=== PATIENT | male | born 1995 | race Caucasian/White ===

== ENCOUNTER 2020-07-26 07:46 | Inpatient (IN) ==
[2020-07-26] MEDS ORDERED: 0.9 % Sodium Chloride 1,000 ML IVC ONE (08:15)
[2020-07-26 09:06] LABS: Hematocrit 32.6 % (37.5-50.1); Mean Corpuscular HGB Conc 33.1 g/dL (31.6-35.5); Mean Corpuscular Hemoglobin 29.2 pg (28.0-33.3); Mean Corpuscular Volume 88.1 fL (83.0-100.0); Platelet Count 236 K/mcL (140-400); Red Cell Distribution Width 12.7 % (11.5-14.5); White Blood Count 8.4 K/mcL (4.3-11.1)
[2020-07-26 09:07] LABS: Hemoglobin 10.8 g/dL (12.9-16.9)
[2020-07-26 09:25] LABS: BUN/Creatinine Ratio 20 (6-26); Blood Urea Nitrogen 17 mg/dL (6-20); Calcium 8.2 mg/dL (8.6-10.3); Carbon Dioxide 24 mEq/L (23-29); Chloride 108 mEq/L (98-107); Glucose 144 mg/dL (70-105); Osmolality,Calculated 292 (280-300); Potassium 3.5 mEq/L (3.5-5.1); Sodium 139 mEq/L (136-145); eGFR For African Americans > 60 (> 60); eGFR For Non-African Americans > 60 (> 60)
[2020-07-26] MEDS ORDERED: Acetaminophen 325 MG TABLET PO PRN (09:37)
[2020-07-26] MEDS ORDERED: Ondansetron 4 MG/2 ML VIAL IVP PRN (09:37)
[2020-07-26 10:02] LABS: Alanine Aminotransferase 25 Units/L (7-52); Albumin 3.7 g/dL (3.5-5.7); Albumin/Globulin Ratio 2.1 (1.1-2.2); Alkaline Phosphatase 48 Units/L (34-104); Aspartate Amino Transferase 18 Units/L (13-39); Bilirubin,Direct 0.1 mg/dL (0.0-0.2); Bilirubin,Indirect 0.3 mg/dL (0.0-1.0); Bilirubin,Total 0.4 mg/dL (0.3-1.0); C-Reactive Protein < 5 mg/L (Less than 10); Globulin 1.8 g/dL (2.4-3.5); Total Protein 5.5 g/dL (6.4-8.9)
[2020-07-26] MEDS: 0.9 % Sodium Chloride 1,000 ML IVC SCH ×2 (12:19→16:59)
[2020-07-26 15:55] LABS: Hematocrit 26.8 % (37.5-50.1); Mean Corpuscular Hemoglobin 30.4 pg (28.0-33.3); Mean Corpuscular Volume 89.6 fL (83.0-100.0); Mean Platelet Volume 10.2 fL (9.4-12.4); Platelet Count 199 K/mcL (140-400); Red Blood Count 2.99 M/mcL (4.19-5.50); Red Cell Distribution Width 12.7 % (11.5-14.5); White Blood Count 9.7 K/mcL (4.3-11.1)
[2020-07-26 16:01] LABS: Hemoglobin 9.1 g/dL (12.9-16.9)
[2020-07-26] MEDS ORDERED: SODIUM CHLORIDE/NAHCO3/KCL/PEG 4,000 ML SOLN.RECON PO ONE (17:00)
[2020-07-27 04:04] LABS: Hematocrit 22.1 % (37.5-50.1); Mean Corpuscular HGB Conc 33.5 g/dL (31.6-35.5); Mean Corpuscular Hemoglobin 30.1 pg (28.0-33.3); Mean Corpuscular Volume 89.8 fL (83.0-100.0); Mean Platelet Volume 9.8 fL (9.4-12.4); Platelet Count 172 K/mcL (140-400); Red Blood Count 2.46 M/mcL (4.19-5.50); Red Cell Distribution Width 12.6 % (11.5-14.5); White Blood Count 7.8 K/mcL (4.3-11.1)
[2020-07-27 04:05] LABS: Hemoglobin 7.4 g/dL (12.9-16.9)
[2020-07-27] MEDS ORDERED: 0.9 % Sodium Chloride 1,000 ML IVC SCH (08:15)
[2020-07-27] MEDS ORDERED: 0.9 % Sodium Chloride 250 ML ONE (08:25)
[2020-07-27] MEDS ORDERED: 0.9 % Sodium Chloride 500 ML IVC PRN (12:39)
[2020-07-27 16:31] LABS: Hematocrit 28.3 % (37.5-50.1); Hemoglobin 9.7 g/dL (12.9-16.9)
[2020-07-27 21:55] LABS: Hematocrit 26.3 % (37.5-50.1); Hemoglobin 9.1 g/dL (12.9-16.9)
[2020-07-28 06:42] VITALS: BP 112/69
[2020-07-28 06:59] LABS: Basophils % 0.4 %; Eosinophils # 0.3 K/mcL (0.0-0.6); Eosinophils % 4.4 %; Hematocrit 25.4 % (37.5-50.1); Hemoglobin 8.6 g/dL (12.9-16.9); Immature Granulocytes % 0.6 % (0-4); Lymphocytes # 2.6 K/mcL (0.6-4.6); Lymphocytes % 36.8 %; Mean Corpuscular HGB Conc 33.9 g/dL (31.6-35.5); Mean Corpuscular Volume 88.5 fL (83.0-100.0); Mean Platelet Volume 9.7 fL (9.4-12.4); Monocytes # 0.5 K/mcL (0.0-1.3); Monocytes % 7.2 %; Neutrophils # 3.6 K/mcL (1.6-8.9); Platelet Count 205 K/mcL (140-400); Red Blood Count 2.87 M/mcL (4.19-5.50); Red Cell Distribution Width 12.7 % (11.5-14.5); Segmented Neutrophils % 50.6 %; White Blood Count 7.1 K/mcL (4.3-11.1)
[2020-07-28 07:24] LABS: BUN/Creatinine Ratio 16 (6-26); Blood Urea Nitrogen 12 mg/dL (6-20); Carbon Dioxide 27 mEq/L (23-29); Chloride 108 mEq/L (98-107); Glucose 126 mg/dL (70-105); Osmolality,Calculated 291 (280-300); Potassium 3.2 mEq/L (3.5-5.1); Sodium 140 mEq/L (136-145); eGFR For African Americans > 60 (> 60); eGFR For Non-African Americans > 60 (> 60)
== END 2020-07-28 11:18 | disposition home or self-care (01) | DRG 254 ==
LOC: 3ANU 07:46 → EMEROOARM 07:46 → SUATTDRO 09:53 → 3ANU 10:44
PROVIDERS: ADMIT Internal Medicine; ATTEND Internal Medicine
PROC: ENDOCBX (2020-07-27 12:40)